=== PATIENT | male | born 1940 | race African-American/Black ===

== ENCOUNTER 2017-07-14 12:57 | Emergency (ER) | payer OTHER ==
[~2017-07-14] VITALS: Ht 180.3 cm; Wt 100.0 kg
[2017-07-14] MEDS ORDERED: ACETAMINOPHEN 500MG TABLET PO ONE (19:15)
[2017-07-14 20:41] VITALS: BP 136/82
== END 2017-07-14 20:44 | disposition home or self-care (01) ==
LOC: ER 13:00
DX: S39.012A Strain of muscle, fascia and tendon of lower back, initial encounter (principal); V89.2XXA Person injured in unspecified motor-vehicle accident, traffic, initial encounter; Y93.89 Activity, other specified; Y92.89 Other specified places as the place of occurrence of the external cause; Y99.8 Other external cause status
CPT/HCPCS: 72100; 99284; Z7610